=== PATIENT | male | born 1940 | race Two or more races ===

== ENCOUNTER 2018-07-12 08:40 | Emergency (ER) | payer OTHER ==
[~2018-07-12] VITALS: Ht 175.3 cm; Wt 63.5 kg
[2018-07-12] MEDS ORDERED: SODIUM CHLORIDE 0.9% 1,000 ML IV ONE (09:01)
[2018-07-12 09:35] LABS: Hematocrit 26.2 % (41.0-53.0); Hemoglobin 8.2 g/dL (13.5-17.5); Mean Corpuscular Hemoglobin 32.9 pg (28.0-32.0); Mean Corpuscular Hgb Conc. 31.4 g/dL (32.0-36.0); Mean Corpuscular Volume 104.5 fL (80.0-100.0); Platelet Count (auto) 49 10^3/uL (140-450)
[2018-07-12 09:37] LABS: Basophils % (manual) 0 (0.0-2.0); Blast Cells 0; Myelocytes % 0; Promyelocytes % 0; Reactive Lymphocytes 0; Red Cell Distribution Width 26.1 % (11.8-14.3)
[2018-07-12 09:47] LABS: INR 1.27 (0.9-1.15); Partial Thromboplastin Time 51.1 sec (23.78-33.04); Prothrombin Time 13.4 sec (9.27-12.13)
[2018-07-12 09:55] LABS: Albumin 2.5 g/dL (3.4-5.0); Calcium 8.4 mg/dL (8.5-10.1); Magnesium 2.6 mg/dL (1.6-2.6); Potassium 4.7 mmol/L (3.5-5.1)
[2018-07-12 09:59] LABS: BUN/Creatinine Ratio 29.4; Bilirubin, Total 2.6 mg/dL (0.2-1.0)
[2018-07-12] MEDS ORDERED: cefTRIAXone 1GM/50ML D5W 50 ML IV ONE (10:00)
[2018-07-12] MEDS ORDERED: AZITHROMYCIN 500MG/ 250ML 250 ML IV ONE (10:00)
[2018-07-12 10:13] LABS: Band Neutrophils % (manual) 7; Eosinophils % (manual) 8 (0-7); Lymphocytes % (manual) 8 (10.0-50.0); Metamyelocytes % 1; Monocytes % (manual) 1 (0-12)
[2018-07-12] MEDS ORDERED: FUROSEMIDE 40 MG/4 ML VIAL IV ONE (10:45)
[2018-07-12] MEDS ORDERED: ASPirin 81 mg TAB PO ONE (10:45)
[2018-07-12 10:54] LABS: Urine Amorphous Crystal FEW /hpf (None Seen); Urine Bacteria NONE SEEN /hpf (None Seen); Urine Blood Negative /uL (Negative); Urine Mucus FEW (None Seen); Urine WBC 1 /hpf (0 - 3)
[2018-07-12] MEDS: ENOXAPARIN SOD 60 MG/0.6 ML SYRINGE SC ONE ×2 (10:55→11:08)
[2018-07-12] MEDS ORDERED: PIPERACILLIN-TAZOB 3.375GM 100 ML IV ONE (11:45)
[2018-07-12] MEDS ORDERED: VANCOMYCIN PER PHARMACY 0 MG IV SCH (13:15)
[2018-07-12] MEDS ORDERED: VANCOMYCIN 1GM/250ML 250 ML IV ONE ×2 (13:15→13:30)
[2018-07-12] MEDS ORDERED: VANCOMYCIN 1,250 MG in D5W 5% 250 ML IV ONE (15:00)
[2018-07-12 15:54] VITALS: BP 97/52
== END 2018-07-12 16:24 | disposition short-term general hospital (02) ==
LOC: ER 08:40 → EDSEX 08:40 → ER 16:24
DX: J18.9 Pneumonia, unspecified organism (principal); I50.9 Heart failure, unspecified; K81.0 Acute cholecystitis; R79.89 Other specified abnormal findings of blood chemistry; E07.9 Disorder of thyroid, unspecified; Z95.1 Presence of aortocoronary bypass graft; Z85.819 Personal history of malignant neoplasm of unspecified site of lip, oral cavity, and pharynx
CPT/HCPCS: 36415; 70450; 70486; 71045; 71250; 74176; 80053; 81001; 83735; 83880; 84484; 85007; 85027; 85610; 85730; 86850; 86900; 86901; 87040; 93005; 94761; 96365; 96366; 96367; 96368; 96375; 99285; J0456; J0696; J1650; J1940; J2543; J3370; J7030; J7060